=== PATIENT | male | born 1945 | race Caucasian/White ===

== ENCOUNTER → 2017-04-25 | Outpatient (CLI) | payer MEDICARE, OTHER ==
--- NOTE | 2017-04-25 10:08 | RADIOLOGY REPORT (SQ) ---
EXAM DESCRIPTION: HIP RIGHT AP/LATERAL COMPLETED DATE/TIME: 04/25/2017 9:58 am REASON FOR STUDY: PAIN IN RIGHT HIP M25.551 PAIN IN RIGHT HIP COMPARISON: None. NUMBER OF VIEWS: Two views. TECHNIQUE: AP pelvis and additional frog-leg view of the right hip. LIMITATIONS: None. FINDINGS: MINERALIZATION: Normal. RIGHT HIP: No fracture or dislocation. Very mild joint space narrowing and bony spurring. LEFT HIP: No fracture or dislocation. Very mild joint space narrowing and bony spurring. PUBIS AND ISCHIUM: No fracture. PELVIS: No fracture. SACRUM: No fracture or dislocation. No worrisome bone lesions. LOWER LUMBAR SPINE: No fracture or dislocation. No worrisome bone lesions. No significant disc disea se. SOFT TISSUES: Arterial vascular calcification OTHER: No other significant finding. IMPRESSION: No acute fracture or malalignment. Mild bilateral hip joint space narrowing and bony sp urring TECHNICAL DOCUMENTATION: JOB ID: [id number] [employer]- All Rights Reserved
== END ==
LOC: RAD 09:37
PROVIDERS: ATTEND Internal Medicine
DX: M25.551 Pain in right hip (principal)

== ENCOUNTER → 2017-07-07 | Outpatient (CLI) | payer MEDICARE, OTHER ==
--- NOTE | 2017-07-07 16:57 | RADIOLOGY REPORT (SQ) ---
EXAM DESCRIPTION: MRI HEAD COMBO COMPLETED DATE/TIME: 07/07/2017 4:20 pm REASON FOR STUDY: DIPLOPIA/PALSY (SPASM) OF CONJUGATE GAZE H53.2 DIPLOPIA H51.0 PALSY (SPASM) OF C ONJUGATE GAZE COMPARISON: CT BRAIN 01/04/2016 TECHNIQUE: Multiplanar imaging includes noncontrasted T1, T2, FLAIR, diffusion with ADC map and post gadolinium contrast T1 sequences. Images stored on PACS. Additional thin section axial and coronal fat-sat T2, precontrast T1, fat-sat postcontrast T1 weighte d images through the central skullbase and orbits along the cranial nerves, orbits, cavernous sinuses . CONTRAST TYPE AND DOSE: 10 mL Multihance. RENAL FUNCTION: Creatinine 1.6, estimated GFR 42 LIMITATIONS: None. FINDINGS: ANATOMY: No developmental anomalies. Normal vascular flow voids. Pituitary fossa normal. CSF SPACES: Normal in size and contour. No hemorrhage. CEREBRUM: Sulci and gyri normal in size and contour. Normal white matter signal on FLAIR imaging. No evidence of hemorrhage, mass, or extraaxial fluid collection. No abnormal enhancement post contrast. POSTERIOR FOSSA: No signal alteration. No hemorrhage. No edema, masses, or mass effect. There is a t ortuous basilar artery which abuts the left 6th nerve cisternal segment on axial series 10, image 43. Correlate clinically for left 6th nerve palsy. No pictures apex fluid or masses on the right or le ft. The right anterior inferior cerebellar artery loops into the right cerebellopontine angle abutti ng the 7th and 8th nerves on axial series 10, image 42. No abnormal 7th or 8th nerve contrast-enhanc ement cisternal segment. DIFFUSION IMAGING: Negative for acute or subacute infarction. ORBITS: Globes, optic nerves, intra and extraconal fat, extraocular muscles, lacrimal apparatus are n ormal PARANASAL SINUSES: No fluid levels. Mucosa normal. OTHER: No other significant finding. 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 Correlate cl inically for left 6th cranial nerve palsy EVIDENCE OF ACUTE STROKE: NO. TECHNICAL DOCUMENTATION: JOB ID: [id number]- All Rights Reserved
== END ==
LOC: RAD 14:11
PROVIDERS: ATTEND Ophthalmology
DX: H53.2 Diplopia (principal); H51.0 Palsy (spasm) of conjugate gaze
CPT/HCPCS: 70553; 82565

== ENCOUNTER 2017-09-22 07:56 | Day surgery (SDC) | payer MEDICARE, OTHER ==
[~2017-09-22 07:56] MED LIST: KETOROLAC TROMETHAMINE 0.45% 4 DROP/0.4 ML DROPERETTE OS PRN; MIDAZOLAM 2 MG/2 ML INJ ONE
[2017-09-22] MEDS ORDERED: EPINEPHRINE INJ/PF 1 MG/1 ML AMPULE ONE (08:36)
[2017-09-22] MEDS ORDERED: LIDOCAINE 1% INJ-PF (10 MG/ML) 30 ML SDV ONE (08:36)
[2017-09-22] MEDS ORDERED: CHONDR SU A NA/HYALUR INTRAOC KIT (SURGICARE) ONE (08:36)
[2017-09-22] MEDS: TETRACAINE HCL 0.5% OPH SOLN 2 ML OS PRN ×3 (08:40→09:05)
[2017-09-22] MEDS: BESIFLOXACIN HCL 0.6% OPH SUSP 5 ML BOTTLE OS PRN ×4 (08:40→09:34)
[2017-09-22] MEDS: TROPICAMIDE 1% OPH SOLN 3 ML OS PRN ×3 (08:40→09:02)
[2017-09-22] MEDS: CYCLOPENTOLATE 0.2%/PHENYLEPHRINE 1% OPH SOLN 2 ML OS PRN ×3 (08:40→09:02)
[2017-09-22] MEDS ORDERED: LIDOCAINE 1%/PHENYLEPHRINE 1.5% 1 ML VIAL ONE (09:10)
--- NOTE | 2017-09-22 14:59 | [facility] OPERATIVE REPORT E ---
[facility] Operative Report NAME: GREY MONTEZ AGE: 72Y DATE OF SURGERY: 09/22/2017 ROOM: PREOPERATIVE DIAGNOSIS: CATARACT, LEFT EYE. POSTOPERATIVE DIAGNOSIS: CATARACT, LEFT EYE. OPERATION: Cataract extraction with intraocular lens implant of the left eye with a toric multifocal lens. SURGEON: BEATA MCKINNEY M.D. ANESTHESIA: MAC ESTIMATED BLOOD LOSS: None. PROCEDURE: After appropriate consent was obtained and calculations made, the patient was brought back to the operating room where the patient was prepped and draped in sterile fashion. A lid speculum was placed and attention was directed to a paracentesis where a paracentesis blade made a small incision. Viscoelastic was then used to inflate the anterior chamber. Next a 2.4 mm incision was made with the paracentesis blade. A continuous capsulorhexis forceps of approximately 5 mm was done using a cystitome and capsulorhexis forceps. Hydrodissection was carried out to make the lens freely mobile and then a divide and conquer technique was used to remove the lens with a CDE of approximately 12.73. Following this, the remaining cortical material was removed with irrigation/aspiration. After this the patient was then again marked. The marking procedure started in the preoperative holding area where 180 and 0 was marked with a marker. Now that the patient was in the operating room a 360-degree marker was used to lizett the axis at approximately 180 degrees and a toric lens of 21.5 diopters [id number] was injected into the bag after filling with viscoelastic and rotating to 177 degrees into proper position. The I/A was used to remove the viscoelastic material and the toric lens appeared to be appropriately aligned. the incision was found to be water tight. The patient returned to postoperative recovery in stable condition. DICTATING PHYSICIAN: BEATA MCKINNEY M.D. [id number] PHY#: [id number] ID: [id number] JOB#: [id number] ACCT: [id number] cc:BEATA MCKINNEY M.D. > MTDD
--- NOTE | 2017-09-22 15:05 | [facility] DISCHARGE SUMMARY E ---
[facility] Discharge Summary NAME: GREY MONTEZ AGE: 72Y ADMITTED: 09/22/2017 DISCHARGED: 09/22/2017 FINAL DIAGNOSIS: Cataract, left eye. HOSPITAL COURSE: This is a 72-year-old male who underwent cataract extraction with a toric IOL of the left eye. He underwent surgery because he was having difficulty seeing words on the television and small print. He should be on a regular diet. No bending at his waist, no heavy lifting. He should use his Besivance, Ilevro and Durezol at 3:00 p.m. and 8:00 p.m. Sleep with a rigid shield. I will see him for his 1-day postoperative tomorrow. DICTATING PHYSICIAN: BEATA MCKINNEY M.D. [id number] PHY#: [id number] ID: [id number] JOB#: [id number] ACCT: [id number] cc:BEATA MCKINNEY M.D. >
== END 2017-09-22 10:28 | disposition home or self-care (01) ==
LOC: SC 07:56
PROVIDERS: ATTEND Internal Medicine
DX: H25.812 Combined forms of age-related cataract, left eye (principal); Z96.1 Presence of intraocular lens; I10 Essential (primary) hypertension; I25.2 Old myocardial infarction; E11.9 Type 2 diabetes mellitus without complications; Z79.84 Long term (current) use of oral hypoglycemic drugs; Z79.82 Long term (current) use of aspirin
CPT/HCPCS: 66984; 82962; V2787; J2250; J3490 ×2; A9270; J0171; 142; J2370

== ENCOUNTER 2018-02-28 11:22 | Emergency (ER) | payer MEDICARE, OTHER ==
[2018-02-28] MEDS ORDERED: NORMAL SALINE 500 ML IV ONE (11:38)
--- NOTE | 2018-02-28 11:38 | ER Document Report ---
ED General - General Chief Complaint: Syncope Stated Complaint: BLOOD PRESSURE PROBLEM Time Seen by Provider: 02/28/18 11:34 Notes: Patient is a 72-year-old male with history of CAD that presents to the emergency department for chief complaint of near syncope or syncopal episode. Patient was at his primary care physician's office today, and became bradycardic and hypotensive, and briefly had a syncopal episode according to witnesses, although the patient does not recall this. He thinks he almost passed out. He denies having any symptoms at this time, denies any lightheadedness, dizziness, nausea, vomiting, chest pain, shortness of breath or difficulty breathing, he also denies any recent illnesses such as fevers, chills or night sweats. The patient does take atenolol and lisinopril for his blood pressure, and he does not recall which medications he took this morning, he states he takes 7 medications in the morning and 7 at night, and does not pay attention to which ones he took. He reports that he is supposed to be getting reduced on his blood pressure medications. Past Medical History: CHF, CAD, diabetes mellitus, hyperlipidemia Past Surgical History: CABG, cholecystectomy Social History: Denies tobacco, alcohol or drug use Family History: Reviewed and noncontributory for presenting illness Allergies: Reviewed, see documented allergy list. REVIEW OF SYSTEMS: Unless otherwise stated in this report the patient's positive and negative responses for review of systems for constitutional, eyes, ENT, cardiovascular, respiratory, gastrointestinal, neurological, genitourinary, musculoskeletal, and integumentary systems and related systems to the presenting problem are either as stated in the HPI or were not pertinent or were negative for the symptoms and/or complaints related to the presenting medical problem. PHYSICAL EXAMINATION: Vital signs reviewed, nursing noted reviewed. GENERAL: Well-appearing, well-nourished and in no acute distress. HEAD: Atraumatic, normocephalic. EYES: Eyes appear normal, extraocular movements intact, sclera anicteric, conjunctiva are normal. ENT: nares patent, oropharynx clear without exudates. Moist mucous membranes. NECK: Normal range of motion, supple without lymphadenopathy LUNGS: Breath sounds clear to auscultation bilaterally and equal. No wheezes rales or rhonchi. HEART: Regular rate and rhythm without murmurs ABDOMEN: Soft, nontender, normoactive bowel sounds. No rebound, guarding, or rigidity. No masses appreciated. EXTREMITIES: Nontender, good range of motion, no pitting or edema. NEUROLOGICAL: No focal neurological deficits. Moves all extremities spontaneously Motor and sensory grossly intact on exam. PSYCH: Normal mood, normal affect. SKIN: Warm, Dry, normal turgor, no rashes or lesions noted on exposed skin TRAVEL OUTSIDE OF THE [place] IN LAST 30 DAYS: No - Related Data Allergies/Adverse Reactions: No Known Allergies Allergy (Verified 08/22/17 13:35) Past Medical History - Social History Smoking Status: Never Smoker Family History: Reviewed & Not Pertinent - Past Medical History Cardiac Medical History: Reports: Hx Coronary Artery Disease, Hx Heart Attack, Hx Hypercholesterolemia Denies: Hx Hypertension Pulmonary Medical History: Denies: Hx Asthma Neurological Medical History: Denies: Hx Cerebrovascular Accident, Hx Seizures Endocrine Medical History: Reports: Hx Diabetes Mellitus Type 2 GI Medical History: Denies: Hx Hepatitis, Hx Hiatal Hernia, Hx Ulcer Infectious Medical History: Denies: Hx Hepatitis Past Surgical History: Reports: Hx Cardiac Surgery, Hx Coronary Artery Bypass Graft, Hx Genitourinary Surgery, Hx Open Heart Surgery - CABG. Denies: Hx Pacemaker Physical Exam - Vital signs Vitals: Resp BP Pulse Ox 17 89/52 L 96 02/28/18 11:28 02/28/18 11:28 02/28/18 11:28 Course - Re-evaluation Re-evalutation: Patient seen and examined vital signs reviewed. Laboratory data and imaging were ordered as appropriate for the patient's presenting symptoms and complaint, with consideration of any critical or life threatening conditions that may be associated with their obtained history and exam as noted above. Patient was treated with IV fluid bolusing Results were reviewed when available and demonstrated unremarkable blood work, patient's renal function does seem to be elevated from his prior, however this is from several years ago, and patient is on lisinopril, he was given IV fluids , do not feel that this is an acute kidney injury. The patient was re-evaluated and was improved, blood pressure improved, heart rate also improved to the mid 50s, will ambulate the patient in the emergency department, I feel that this is likely related to medications, and resulting in symptomatic bradycardia and hypotension, discussed at length with the patient regarding his medications, will place a call to his primary care physician to discuss disposition. I discussed the case with Dr. Thom Mcnamara, the patient's primary care physician who saw him in the office today, and we all felt that this was iatrogenic, from the patient's blood pressure medications in particular his atenolol, likely vasovagal component as well because the patient was about to receive his flu vaccine, and he states he does not particularly like needles. Patient was able to ambulate throughout the emergency department without any difficulty, no lightheadedness, was completely asymptomatic, heart rate was in the 60s. Evaluation was most consistent with syncope, secondary to bradycardia, likely iatrogenic from beta-blockade, with vasovagal component, patient will follow up with his primary care physician, next week, his primary care doctor stated that he would call this evening to check on him as well. Results were discussed with the patient at this point, after careful consideration I feel that that patient can be discharged from the emergency department, the patient was educated treatments and reasons to return to the emergency department based on their presumed diagnosis as noted above, they were advised to followup with a primary care physician in 2-3 days. Patient was agreeable to plan of care. *Note is created using voice recognition software and may contain spelling, syntax or grammatical errors. Laboratory 02/28/18 02/28/18 02/28/18 11:30 11:38 11:38 WBC 6.5 RBC 4.67 Hgb 13.8 Hct 40.5 MCV 87 MCH 29.5 MCHC 34.0 RDW 14.1 H Plt Count 198 Seg Neutrophils % 72.1 Lymphocytes % 17.4 Monocytes % 8.7 Eosinophils % 1.3 Basophils % 0.5 Absolute Neutrophils 4.7 Absolute Lymphocytes 1.1 Absolute Monocytes 0.6 Absolute Eosinophils 0.1 Absolute Basophils 0.0 Sodium 143.5 Potassium 4.3 Chloride 111 H Carbon Dioxide 22 Anion Gap 11 BUN 19 Creatinine 1.43 H Est GFR ( Amer) 58 L Est GFR (Non-Af Amer) 48 L Glucose 122 H POC Glucose 121 H Calcium 9.5 Total Bilirubin 0.6 Direct Bilirubin 0.3 Neonat Total Bilirubin Not Reportable Neonat Direct Bilirubin Not Reportable Neonat Indirect Bili Not Reportable AST 19 ALT 17 L Alkaline Phosphatase 41 Creatine Kinase 44 L CK-MB (CK-2) Troponin I Total Protein 6.6 Albumin 3.9 02/28/18 11:38 WBC RBC Hgb Hct MCV MCH MCHC RDW Plt Count Seg Neutrophils % Lymphocytes % Monocytes % Eosinophils % Basophils % Absolute Neutrophils Absolute Lymphocytes Absolute Monocytes Absolute Eosinophils Absolute Basophils Sodium Potassium Chloride Carbon Dioxide Anion Gap BUN Creatinine Est GFR ( Amer) Est GFR (Non-Af Amer) Glucose POC Glucose Calcium Total Bilirubin Direct Bilirubin Neonat Total Bilirubin Neonat Direct Bilirubin Neonat Indirect Bili AST ALT Alkaline Phosphatase Creatine Kinase CK-MB (CK-2) 1.06 Troponin I < 0.012 Total Protein Albumin - Vital Signs Vital signs: Temp Pulse Resp BP Pulse Ox 98.1 F 51 L 20 111/64 18 L 02/28/18 14:07 02/28/18 14:07 02/28/18 14:07 02/28/18 14:07 02/28/18 14:07 - Laboratory Result Diagrams: 02/28/18 11:38 02/28/18 11:38 Laboratory results interpreted by me: 02/28/18 02/28/18 02/28/18 11:30 11:38 11:38 RDW 14.1 H Chloride 111 H Creatinine 1.43 H Est GFR ( Amer) 58 L Est GFR (Non-Af Amer) 48 L Glucose 122 H POC Glucose 121 H ALT 17 L Creatine Kinase 44 L - EKG Interpretation by Me Additional EKG results interpreted by me: EKG demonstrates sinus bradycardia with first-degree AV block, with a ventricular rate of 49 bpm, borderline right axis deviation, NC interval prolonged at 213 ms, QTC 412 ms, no evidence of acute ischemia. This is compared with prior EKG from 01/02/2016, without any new or changed ST or T wave abnormalities. 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 Referrals: THOM MCNAMARA MD [Primary Care Provider] - Follow up in 3-5 days
[2018-02-28 12:01] LABS: ABSOLUTE EOSINOPHILS # (AUTO) 0.1 10^3/uL (0.0-0.6); ABSOLUTE LYMPHOCYTES (AUTO) 1.1 10^3/uL (0.5-4.7); ABSOLUTE MONOCYTES (AUTO) 0.6 10^3/uL (0.1-1.4); ABSOLUTE NEUT (AUTO) 4.7 10^3/uL (1.7-8.2); BASOPHILS % (AUTO) 0.5 % (0-2); EOSINOPHILS % (AUTO) 1.3 % (0-6); HEMATOCRIT 40.5 % (37.9-51.0); HEMOGLOBIN 13.8 g/dL (13.5-17.0); LYMPHOCYTES % (AUTO) 17.4 % (13-45); MEAN CORPUSCULAR HEMOGLOBIN 29.5 pg (27.0-33.4); MEAN CORPUSCULAR VOLUME 87 fl (80-97); MONOCYTES % (AUTO) 8.7 % (3-13); PLATELET COUNT 198 10^3/uL (150-450); RED BLOOD COUNT 4.67 10^6/uL (4.35-5.55); RED CELL DISTRIBUTION WIDTH 14.1 % (11.5-14.0); SEGMENTED NEUTROPHILS % (AUTO) 72.1 % (42-78); TOTAL CELLS COUNTED % (AUTO) 100 %; WHITE BLOOD COUNT 6.5 10^3/uL (4.0-10.5)
[2018-02-28 12:18] LABS: ALANINE AMINOTRANSFERASE 17 U/L (21-72); ALBUMIN 3.9 g/dL (3.5-5.0); ALKALINE PHOSPHATASE 41 U/L (38-126); ANION GAP 11 (5-19); ASPARTATE AMINO TRANSFERASE 19 U/L (17-59); BILIRUBIN,DIRECT 0.3 mg/dL (0.0-0.4); BILIRUBIN,TOTAL 0.6 mg/dL (0.2-1.3); BLOOD UREA NITROGEN 19 mg/dL (7-20); CALCIUM 9.5 mg/dL (8.4-10.2); CARBON DIOXIDE 22 mmol/L (22-30); CHLORIDE 111 mmol/L (98-107); CREATINE KINASE 44 U/L (55-170); GLUCOSE 122 mg/dL (75-110); POTASSIUM 4.3 mmol/L (3.6-5.0); SODIUM 143.5 mmol/L (137-145); TOTAL PROTEIN 6.6 g/dL (6.3-8.2)
[2018-02-28 12:29] LABS: CREATINE KINASE MB 1.06 ng/mL (<4.55)
[2018-02-28 12:31] LABS: TROPONIN I < 0.012 ng/mL
--- NOTE | 2018-02-28 12:59 | EKG REPORT ---
SEVERITY:- ABNORMAL ECG - SINUS BRADYCARDIA LEFT POSTERIOR FASCICULAR BLOCK INFERIOR INFARCT, AGE INDETERMINATE PROBABLE ANTEROSEPTAL INFARCT, OLD FIRST DEGREE AVB. : Confirmed by: Silver Lomax MD 28-Feb-2018 12:58:59
[2018-02-28 14:08] VITALS: BP 111/64
== END 2018-02-28 14:08 | disposition home or self-care (01) ==
LOC: ER 11:22
DX: R00.1 Bradycardia, unspecified (principal); R55 Syncope and collapse; I25.10 Atherosclerotic heart disease of native coronary artery without angina pectoris; I44.0 Atrioventricular block, first degree; E11.9 Type 2 diabetes mellitus without complications; Z79.899 Other long term (current) drug therapy; Z95.1 Presence of aortocoronary bypass graft
CPT/HCPCS: 93005; 99284; 36415; 82553; 82962; 82550; 85025; 80053; 84484; 93010; J7040

== ENCOUNTER → 2018-04-19 | Outpatient (CLI) | payer MEDICARE, OTHER ==
[~2018-04-19] MED LIST changes: -KETOROLAC TROMETHAMINE 0.45% 4 DROP/0.4 ML DROPERETTE OS PRN; -MIDAZOLAM 2 MG/2 ML INJ ONE; +REGADENOSON INJ 0.4 MG/5 ML DISP.SYRIN IV ONE
--- NOTE | 2018-04-20 20:55 | DRAGON STRESS TEST REPORT ---
Intravenous Lexiscan Cardiolite stress test using single photon emmision computerized tomography. Date of procedure: 04/19/2018.Ordering Provider: Dr. Matthew Funez. Patient's status: Out Patient. Indication: Coronary artery disease: Assess progression.. Coronary risk factors : Age, hypertension, diabetes mellitus, and dyslipidemia Resting EKG: Sinus Rhythm. Poor R wave progression leads V1 to V6. Stress EKG: No changes of ischemia. The patient had no chest pain or discomfort, and there were no arrhythmias seen. Reason for termination: Protocol. Conclusions: Normal EKG and hemodynamic response to IV Lexiscan. Nuclear data: At rest the patient was given 12.74 millicuries of technetium 99m sestamibi injected intravenously. As per protocol rest non gated SPECT images were obtained. Subsequently the patient was given intravenous Lexiscan at a dose of 0.4 mg in 5 mL intravenously, followed by flush with normal saline. Subsequently the stress dose of 38.1 millicuries of technetium 99m sestamibi was injected intravenously. As per protocol stress gated images were obtained. Nuclear interpretation: Review of images showed that all segments of the myocardium had normal perfusion at rest, and normal perfusion post stress with IV Lexiscan. All segments of the myocardium had normal motion, contraction, and thickening by gated study. T. I D. ratio was read as abnormal at 1.35. This is not reliable, and visually there is no transient ischemic dilatation of the left ventricle. Computer read rest, and stress left ventricular ejection fraction were 58 %, and 49 %, respectively. Visually both the stress and rest ejection fractions were normal , and greater than 55%. Conclusion: 1. There is no scintigraphic evidence of Lexiscan induced myocardial ischemia. 2. There is no scintigraphic evidence of myocardial infarction/scar. Recommendations: 1. Correlate clinically. 2.Aggressive risk factor modification, and treating the underlying co- morbidities. JESES
== END ==
LOC: RAD 09:09
PROVIDERS: ATTEND Internal Medicine Cardiovascular Disease
DX: I25.10 Atherosclerotic heart disease of native coronary artery without angina pectoris (principal); I10 Essential (primary) hypertension; E78.5 Hyperlipidemia, unspecified; E11.9 Type 2 diabetes mellitus without complications
CPT/HCPCS: 93017; 78452; A9500; J2785; Q9969

== ENCOUNTER → 2018-10-02 | Outpatient (CLI) | payer MEDICARE, OTHER ==
--- NOTE | 2018-10-02 13:51 | RADIOLOGY REPORT (SQ) ---
EXAM DESCRIPTION: MRI LUMBAR SPINE WITHOUT COMPLETED DATE/TIME: 10/02/2018 11:31 am REASON FOR STUDY: LOW BACK PAIN (M54.5) M54.5 LOW BACK PAIN COMPARISON: None. TECHNIQUE: Sagittal and Axial imaging includes T1, T2, STIR and gradient echo sequences. Coronal T2/ HASTE imaging. LIMITATIONS: None. FINDINGS: VISUALIZED UPPER ABDOMEN: Limited evaluation. No acute or suspicious findings suggested. SEGMENTATION: No transitional anatomy. The lowest well-developed disc space is labeled L5-S1. ALIGNMENT: Mild grade 1 anterolisthesis of L4 on L5. VERTEBRAE: Intact. BONE MARROW: Normal. No marrow replacement or reactive changes. DISC SIGNAL: All the lumbar disc spaces are narrowed. Decreased signal intensity. POSTERIOR ELEMENTS: Generally intact. No pars defect evident. HARDWARE: None in the spine. CORD AND CONUS: Normal in size and signal intensity. Conus at the L1-2 level. SOFT TISSUES: No aortic aneurysm seen. No bulky retroperitoneal adenopathy or mass. No paraspinal mas s or fluid. L1-L2: Mild concentric disc bulge with no central canal or foraminal stenosis. L2-L3: Mild concentric disc bulge with no central canal or foraminal stenosis. L3-L4: Mild concentric disc bulge with no central canal or foraminal stenosis. L4-L5: Mild concentric disc bulge. Facet and ligament hypertrophy. Mild central canal stenosis. L5-S1: Broad-based disc bulge that is slightly asymmetrical to the right. This appears to displace t he traversing nerve root on image 31 series 6. LOWER THORACIC: Incompletely imaged. No stenosis seen. SACRUM: Visualized upper sacrum intact. OTHER: No other significant findings. IMPRESSION: Disc changes as described. Most significant finding appears be at L5-S1. Mild central canal stenosis is present at L4-5 secondary to mild disc bulge and facet and ligament hypertrophy. TECHNICAL DOCUMENTATION: JOB ID: [id number] [employer]- All Rights Reserved Reading location - IP/workstation name: [email or web address]
== END ==
LOC: RAD 10:42
PROVIDERS: ATTEND Physician Assistant
DX: M54.5 Low back pain (principal)
CPT/HCPCS: 72148